=== PATIENT | female | born 1995 | race Caucasian/White ===

== ENCOUNTER 2024-10-10 08:13 | Outpatient (AMB) | payer OTHER, MEDICAID, SELFPAY ==
[2024-10-10 08:27] VITALS: BP 137/85; PULSE 76; RESP 18; TEMP 36.7; O2SAT 95; BMI 55.4
--- NOTE | 2024-10-10 08:27 | RHCORTHONT_ITS ---
Vital signs 10/10/24 08:27 Height 1.57 m Height Method Stated Weight 137.438 kg Weight Measurement Method Standing Scale BMI 55.4 BP 137/85 H Blood Pressure Source Automatic Cuff Blood Pressure Location Right Upper Arm Position Sitting Respiration 18 Pulse 76 Pulse Source Monitor Temp 98.0 F Temp Source Temporal Artery Scan Pulse Oximetry (%) 95 Oxygen Delivery Method Room Air Med/Allergies Allergies & Medications Allergies ibuprofen Allergy (Verified 10/10/24 08:29) Medication Reconciliation diclofenac sodium 1 % topical gel 4 g topical QID #100 grams 10/10/24 [Rx] fluoxetine 40 mg capsule (Prozac) 40 mg PO BID 10/10/24 [History Confirmed 10/10/24] fluticasone furoate 50 mcg/actuation blister powder for inhalation inhalation 10/10/24 [History Confirmed 10/10/24] hydrocodone 5 mg-acetaminophen 325 mg tablet 1 tab PO BID PRN 10/10/24 [History Confirmed 10/10/24] ondansetron 8 mg disintegrating tablet 8 mg PO Q12H 10/10/24 [History Confirmed 10/10/24] prazosin 1 mg capsule 1 mg PO QHS 10/10/24 [History Confirmed 10/10/24] pyridostigmine bromide 180 mg tablet,extended release (Mestinon Timespan) 180 mg PO BID 10/10/24 [History Confirmed 10/10/24] trazodone 50 mg tablet 50 mg PO QDAY 10/10/24 [History Confirmed 10/10/24] Exam Exam Patient is in no acute distress and is cooperative with the examination today. Patient has a normal mood and affect. Breathing is nonlabored. In no respiratory distress. Bilateral extremities were evaluated and demonstrates sensation intact to light touch. Palpable pedal pulses are present. No significant edema is present. Right knee is tender to palpation medially and laterally. She is negative Mckeon's. She is negative Willian's. Left knee is tender to palpation diffusely. Range of motion 0 to 110 degrees bilaterally. She Has a negative Willian's An MRI from [facility] was reviewed. There is an anterior horn tear Assessment and Plan Problem List (1) Acute meniscal tear of knee: Status: Acute Plan: Patient is a 29-year-old female with degenerative meniscal tears of the right knee. She has left knee pain as well. She also had a recent increase in weight. We discussed nonoperative and operative options. We discussed that surgical treatment would probably not be recommended as she recently started a immunomodulators for her lupus. She is certainly at increased risk for infection as well. We thus recommended weight loss, conservative management. We discussed we can try an injection if needed. Will start with a topical anti- inflammatory. Office Procedures GNS Level of Care Nursing/Assessment Patient Status: Initial/New Patient Nursing Assessment/Reassesment: Medication Reconciliation, Update PMH in EMR and Vital Signs Coordination of Care: Complex Care and Chronic Disease 1-5, Education Complex Pt/Fam, Consent,records obtained, informed consent, Results/Orders obtained and Staff clarify orders New Patient Charge New Patient Point Assignment: 1094 New Patient Point Charge: [employer]ILOT Level 3 ([id number]) MA Intake Visit Data Collection Reason for Visit:: knee pain, torn meniscus Seen by Clinical Staff ONLY (RN/MA): No Verbal consent obtained for Telemed visit?: No Data Solutions Architect Required: No Hx Now: No Questionairres Past Medical History Past Medical History Have you ever been diagnosed with any of the following: Neurological Problems Cerebrovascular Accident (CVA): No Transient Ischemic Attacks (TIA): No Dementia: No Subjective Visit Visit for: new patient Immunization / Flu Flu Vaccine in the Last 12 Months: Yes Flu Vaccine Exclusion Criteria: Already Received History of Present Illness Chief complaint: knee pain, torn meniscus Date of injury / onset of symptoms: 3 years Patient is a pleasant 29-year-old female with bilateral knee pain. She has a right knee MRI and was told that she had a meniscal tear. She has lupus and had a recent weight gain. She has a meniscal tear. She Reports that 3 years ago she had a fall at [employer] where she slipped. It sounds like she did have a patella desiccation at that time. She has been having persistent pain. She has multiple medical issues including lupus and myasthenia gravis. She is on prednisone and recently gained weight because of this. She has gained a significant amount ofweight Personal History Occupation: marketing support coordinator Hobbies: weight training, cooking BMI Counceling provided: Yes Pain Pain level (0-10): 8 Pain duration: with movement Pain location: inside (medial), outside (lateral), anterior and posterior Pain quality: sharp and burning Pain timing: increases with activity and stairs Associated signs & symptoms: weakness and stiffness Ambulatory data Ambulatory device: none Treatments Number of Physical Therapy sessions: 18 Improvement with PT: No Improvement with NSAIDS: n/a Review of Systems Review of Systems: All systems negative unless otherwise noted in HPI.
== END 2024-10-10 09:08 | disposition home or self-care (01) ==
LOC: HODSRG 08:13
PROVIDERS: PCP Family Medicine; Referring Provider Family Medicine; Supervising Provider Orthopaedic Surgery Adult Reconstructive Orthopaedic Surgery; Visit Provider Orthopaedic Surgery Adult Reconstructive Orthopaedic Surgery
DX: S83.206D Unspecified tear of unspecified meniscus, current injury, right knee, subsequent encounter (principal); X58.XXXD Exposure to other specified factors, subsequent encounter; M25.561 Pain in right knee
CPT/HCPCS: 99203; G0463